=== PATIENT | male | born 1990 | race Caucasian/White ===

== ENCOUNTER 2019-02-08 10:09 | Emergency (ER) | payer OTHER ==
[2019-02-08 10:16] VITALS: BP 140/93
--- NOTE | 2019-02-08 10:33 | ED Physician Documentation ---
PD HPI URI - Stated complaint Stated Complaint: COLD SX/FEVER - Chief complaint Chief Complaint: Resp - History obtained from History obtained from: Patient - History of Present Illness Timing - onset: How many weeks ago (2) Timing details: Gradual onset, Still present (Worse the past 3 days with now high fevers, productive cough, dyspnea, tightness or breathing.) Associated symptoms: Chills, Nasal congestion, Sore throat, Dry cough Contributing factors: No: Sick contact, Immunocompromised, COPD / asthma Similar symptoms before: Has not had sx before Review of Systems Constitutional: reports: Fever, Myalgias Nose: reports: Congestion Throat: denies: Sore throat Cardiac: denies: Chest pain / pressure Respiratory: reports: Cough. denies: Dyspnea, Wheezing GI: denies: Abdominal Pain, Nausea, Vomiting, Diarrhea Skin: denies: Rash, Lesions PD PAST MEDICAL HISTORY - Past Medical History Cardiovascular: None Respiratory: None Neuro: None Endocrine/Autoimmune: None - Present Medications Home Medications: Ambulatory Orders Medication Instructions Recorded Confirmed Albuterol Sulf [Ventolin Hfa 2 puffs INH QID #1 inhaler 02/08/19 Inhaler] Benzonatate [Tessalon Perle] 100 mg PO TID PRN #30 capsule 02/08/19 Doxycycline Monohydrate 100 mg PO BID #14 tablet 02/08/19 dexAMETHasone [Decadron] 4 mg PO DAILY #7 tablet 02/08/19 - Allergies Allergies/Adverse Reactions: Allergies Allergy/AdvReac Type Severity Reaction Status Date / Time Penicillins Allergy Edema Verified 02/08/19 10:16 - Social History Does the pt smoke?: No Smoking Status: Never smoker PD ED PE NORMAL - Vitals Vital signs reviewed: Yes - General General: Alert and oriented X 3, No acute distress, Well developed/nourished - HEENT HEENT: Pharynx benign - Neck Neck: Supple, no meningeal sign, No adenopathy - Cardiac Cardiac: RRR, No murmur - Respiratory Respiratory: Clear bilaterally - Derm Derm: Normal color, Warm and dry - Neuro Neuro: Alert and oriented X 3, No motor deficit, Normal speech Results - Vitals Vitals: Vital Signs - 24 hr 02/08/19 10:14 Temperature 36.7 C Heart Rate 87 Respiratory 20 Rate Blood Pressure 140/93 H O2 Saturation 97 Oxygen O2 Source Room air PD MEDICAL DECISION MAKING - ED course Complexity details: considered differential (sounds likely bacterial transformation atop 2 weeks of URI, or may have just got 2nd illness, but has bacterial sound to it. ), d/w patient Departure - Departure Disposition: 01 Home, Self Care Clinical Impression: Acute bronchitis Qualifiers: Bronchitis organism: unspecified organism Qualified Code(s): J20.9 - Acute bronchitis, unspecified Condition: Stable Record reviewed to determine appropriate education?: Yes Instructions: ED Upper Resp Infec Abx Tx Prescriptions: Albuterol Sulf [Ventolin Hfa Inhaler] 2 puffs INH QID #1 inhaler Benzonatate [Tessalon Perle] 100 mg PO TID PRN #30 capsule PRN Reason: Cough dexAMETHasone [Decadron] 4 mg PO DAILY #7 tablet Doxycycline Monohydrate 100 mg PO BID #14 tablet Comments: Stay well-hydrated. Continue the ibuprofen 3 times a day if needed for fevers and pains. This sounds likely to be bacterial infection at this point. Use doxycycline antibiotic twice daily for a week. Decadron steroid anti- inflammatory to reduce bronchial inflammation daily for a week. Use the albuterol inhaler 2 puffs 4 times a day for the next 7 to 10 days and extra times as needed for cough and tightness of breathing. Tessalon as needed for cough suppression. Recheck if not improving well over the next several days. Once feeling better, you may have a continued cough or irritation that lasts even a few weeks but generally would be feeling better. Discharge Date/Time: 02/08/19 11:29
== END 2019-02-08 11:29 | disposition home or self-care (01) ==
LOC: ED 10:09
DX: J20.9 Acute bronchitis, unspecified (principal)
CPT/HCPCS: 99283

== ENCOUNTER 2019-10-28 17:50 | Emergency (ER) | payer OTHER ==
[2019-10-28] MEDS ORDERED: BUTALB/ACETAM/CAFF 50/325/40MG TABLET PO STA (18:30)
[2019-10-28] MEDS ORDERED: ONDANSETRON ODT 4 MG TABLET TL STA (18:30)
--- NOTE | 2019-10-28 18:46 | ED Physician Documentation ---
PD HPI HEAD INJURY - Stated complaint Stated Complaint: HEAD PX/INJ - Chief complaint Chief Complaint: Trauma Hd/Nk - History obtained from History obtained from: Patient - History of Present Illness Mechanism of head injury: Fell Where head injury occurred: Home Timing - onset: Last night Pain level max: 8 Pain level now: 8 Location of injury: Front Quality of pain: Pain, Throbbing, Aching Associated symptoms: Nausea / vomiting (nausea, no vomiting, increasing headache today.). 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 No loss of consciousness. Has had nausea today. No vomiting. Increasing headache throughout the day. States that he feels "dazed". Review of Systems Constitutional: denies: Fever, Chills Cardiac: denies: Chest pain / pressure Respiratory: denies: Cough GI: denies: Vomiting, Diarrhea Skin: denies: Rash Musculoskeletal: denies: Neck pain, Back pain Neurologic: denies: Focal weakness, Numbness, Seizure, LOC PD PAST MEDICAL HISTORY - Past Medical History Cardiovascular: None Respiratory: None Neuro: None Endocrine/Autoimmune: None GI: None : None HEENT: None Psych: None Musculoskeletal: None Derm: None - Past Surgical History Past Surgical History: No - Present Medications Home Medications: Ambulatory Orders Medication Instructions Recorded Confirmed Albuterol Sulf [Ventolin Hfa 2 puffs INH QID #1 inhaler 02/08/19 Inhaler] Benzonatate [Tessalon Perle] 100 mg PO TID PRN #30 capsule 02/08/19 Doxycycline Monohydrate 100 mg PO BID #14 tablet 02/08/19 dexAMETHasone [Decadron] 4 mg PO DAILY #7 tablet 02/08/19 Ondansetron Odt [Zofran] 4 mg TL Q6H PRN #10 tablet 10/28/19 - Allergies Allergies/Adverse Reactions: Allergies Allergy/AdvReac Type Severity Reaction Status Date / Time Penicillins Allergy Edema Verified 10/28/19 17:55 - Social History Does the pt smoke?: No Smoking Status: Never smoker Does the pt drink ETOH?: No Does the pt have substance abuse?: No - Immunizations Immunizations are current?: Yes PD ED PE NORMAL - Vitals Vital signs reviewed: Yes - General General: Alert and oriented X 3, No acute distress - HEENT HEENT: PERRL, EOMI, Moist mucous membranes, Pharynx benign, Other (Abrasion to the bridge of the nose. No palpable skull fractures. No scalp hematomas.) - Neck Neck: Supple, no meningeal sign, No bony TTP (No step-off or deformity. 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, No motor deficit, No sensory deficit, Normal speech Eye Opening: Spontaneous Motor: Obeys Commands Verbal: Oriented GCS Score: 15 - Psych Psych: Normal mood, Normal affect Results - Vitals Vitals: Vital Signs - 24 hr 10/28/19 10/28/19 17:55 19:07 Temperature 37 C 36.6 C Heart Rate 79 74 Respiratory 16 16 Rate Blood Pressure 134/74 H 150/60 H O2 Saturation 97 98 Oxygen O2 Source Room air - Rads (name of study) Head CT Radiology: Prelim report reviewed, EMP read contemporaneously, See rad report (No acute intracranial abnormality) PD MEDICAL DECISION MAKING - ED course Complexity details: reviewed results, re-evaluated patient, considered differential, d/w patient, d/w family ED course: Patient is a 29-year-old male who presents to the emergency department with a closed head injury, likely concussion. Feels much better after Zofran and Fioricet. No acute findings on head CT. 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 Patient counseled regarding signs and symptoms for which I believe and urgent re-evaluation would be necessary. Patient with good understanding of and agreement to plan and is comfortable going home at this time This document was made in part using voice recognition software. While efforts are made to proofread this document, sound alike and grammatical errors may occur. Tetanus is up-to-date. Abrasion to the nose does not require repair. Departure - Departure Disposition: 01 Home, Self Care Clinical Impression: Concussion Qualifiers: Encounter type: initial encounter Loss of consciousness presence/duration: without LOC Qualified Code(s): S06.0X0A - Concussion without loss of consciousness, initial encounter Condition: Good Instructions: ED Concussion Follow-Up: your,doctor in 1 week [Other] Prescriptions: Ondansetron Odt [Zofran] 4 mg TL Q6H PRN #10 tablet PRN Reason: Nausea / Vomiting Comments: Return if you worsen. Follow-up with your doctor later this week for repeat evaluation. They will likely need to modify your duty in the [place] while you heal. Discharge Date/Time: 10/28/19 19:25
--- NOTE | 2019-10-28 18:53 | CT Report ---
PROCEDURE: HEAD WO INDICATIONS: head injury, dazed, nauseated TECHNIQUE: Noncontrast 4.5 mm thick angled axial sections acquired from the foramen magnum to the vertex. For r adiation dose reduction, the following was used: automated exposure control, adjustment of mA and/or kV according to patient size. COMPARISON: None. FINDINGS: Image quality: Excellent. CSF spaces: Basal cisterns are patent. No extra-axial fluid collections. Ventricles are normal in size and shape. Brain: No midline shift. No acute intracranial hemorrhage, contusion, or mass effect. Perry-white ma tter interface is normal. Skull and face: Calvarium and visualized facial bones are intact, without suspicious lesions. Sinuses: Visualized sinuses and mastoids are clear. IMPRESSION: No acute intracranial hemorrhage or mass effect. No skull fracture. Reviewed by: Jarrett Couch MD on 10/28/2019 6:52 PM PDT Approved by: Jarrett Couch MD on 10/28/2019 6:52 PM PDT Station ID: [id number]
[2019-10-28 19:08] VITALS: BP 150/60
== END 2019-10-28 19:25 | disposition home or self-care (01) ==
LOC: ED 17:50
DX: S06.0X0A Concussion without loss of consciousness, initial encounter (principal); S00.31XA Abrasion of nose, initial encounter; W01.198A Fall on same level from slipping, tripping and stumbling with subsequent striking against other object, initial encounter; W55.09XA Other contact with cat, initial encounter; Y92.009 Unspecified place in unspecified non-institutional (private) residence as the place of occurrence of the external cause
CPT/HCPCS: 70450; 99284; A9270; Q0162